=== PATIENT | male | born 1965 | race Caucasian/White ===

== ENCOUNTER 2017-07-02 19:12 | Inpatient (IN) | payer OTHER ==
[~2017-07-02] VITALS: Ht 175.2 cm; Wt 86.4 kg
[~2017-07-02 19:12] MED LIST: ASPIRIN CHEWABL81 M1 PO; CIPRO500 MG PO; D-1000 185 MG-11 TAB PO; TRAMADOL HCL50 MG PO; TRIMOX500 MG PO
[2017-07-02 19:19] VITALS: BP 149/87
[2017-07-02 19:43] LABS: BASO # 0.1 10*3/uL (0.0-0.1); BASO % 0.5 % (0.0-1.0); EOS # 0.8 10*3/uL (0.0-0.4); EOS % 6.3 % (1.0-4.0); HEMATOCRIT 46.1 % (42.0-52.0); HEMOGLOBIN 16.1 g/dl (14.0-18.0); LYMPH # 4.4 10*3/uL (1.3-4.4); LYMPH % 33.2 % (27.0-41.0); MEAN CELL VOLUME 95.6 fl (80.0-94.0); MEAN CORPUSCULAR HGB 33.4 pg (27.0-31.0); MEAN CORPUSCULAR HGB CONC 34.9 g/dl (33.0-37.0); MEAN PLATELET VOLUME 9.8 fl (9.6-12.3); MONO # 1.4 10*3/uL (0.1-1.0); MONO % 10.2 % (3.0-9.0); NEUT # 6.6 10*3/uL (2.3-7.9); NEUT % 49.3 % (47.0-73.0); PLATELET COUNT AUTOMATED 340 10*3/uL (130-400); RED BLOOD COUNT 4.82 10*6/uL (4.50-5.90); RED CELL DISTRI WIDTH 12.4 % (0-14.5); WHITE BLOOD COUNT 13.3 10*3/uL (4.8-10.8)
[2017-07-02 20:01] LABS: ALBUMIN 3.7 gm/dl (3.1-4.5); ALKALINE PHOSPHATASE 80 U/L (45-117); BUN 13 mg/dl (7-24); CHLORIDE 103 mmol/L (98-107); CREATININE 0.98 mg/dL (0.70-1.30); POTASSIUM 3.9 mmol/L (3.5-5.1); SGOT/AST 16 IU/L (3-35); SGPT/ALT 26 U/L (12-78); SODIUM 139 mmol/L (136-145); TOTAL PROTEIN 7.2 gm/dL (6.4-8.2)
[2017-07-02 20:04] LABS: ETHYL ALCOHOL < 3.0 mg/dl (<3); TROPONIN I < 0.015 ng/ml (<0.045)
[2017-07-02 20:14] VITALS: BP 132/89
[2017-07-02 20:58] VITALS: BP 131/87
[2017-07-02 21:20] VITALS: BP 109/90
[2017-07-02 21:41] VITALS: BP 109/90
[2017-07-02 22:00] VITALS: BP 109/90
[2017-07-03] VITALS (8 sets, daily range): BP systolic 102–148; BP diastolic 62–77
[2017-07-03 05:55] LABS: BASO # 0.1 10*3/uL (0.0-0.1); BASO % 0.5 % (0.0-1.0); EOS # 0.7 10*3/uL (0.0-0.4); EOS % 6.6 % (1.0-4.0); HEMATOCRIT 43.1 % (42.0-52.0); HEMOGLOBIN 14.9 g/dl (14.0-18.0); LYMPH # 4.1 10*3/uL (1.3-4.4); LYMPH % 37.5 % (27.0-41.0); MEAN CELL VOLUME 96.6 fl (80.0-94.0); MEAN CORPUSCULAR HGB 33.4 pg (27.0-31.0); MEAN CORPUSCULAR HGB CONC 34.6 g/dl (33.0-37.0); MEAN PLATELET VOLUME 10.2 fl (9.6-12.3); MONO % 8.9 % (3.0-9.0); NEUT # 5.1 10*3/uL (2.3-7.9); PLATELET COUNT AUTOMATED 320 10*3/uL (130-400); RED BLOOD COUNT 4.46 10*6/uL (4.50-5.90); RED CELL DISTRI WIDTH 12.5 % (0-14.5)
[2017-07-03 06:19] LABS: BUN 9 mg/dl (7-24); CHLORIDE 109 mmol/L (98-107); CHOLESTEROL 214 mg/dL (<200); CREATININE 0.66 mg/dL (0.70-1.30); HDL CHOLESTEROL 42 mg/dl (40-60); LDL CHOLESTEROL 123 mg/dL (9-159); POTASSIUM 3.8 mmol/L (3.5-5.1); SODIUM 142 mmol/L (136-145); TRIGLYCERIDES 244 mg/dl (<150); VLDL CHOLESTEROL 49 mg/dL (6-40)
[2017-07-03 06:31] LABS: ACT PARTIAL THROMBO TIME 33.1 SECONDS (20.8-31.5)
[2017-07-03 06:38] LABS: VITAMIN D, 25-HYDROXY 9.7 ng/mL (30-100)
[2017-07-04] VITALS: BP 120/70
[2017-07-04 08:00] VITALS: BP 130/86
[2017-07-04 12:00] VITALS: BP 118/82
[2017-07-04] MEDS ORDERED: CALCIUM CARBON200 MG PO (13:37)
[2017-07-04] MEDS ORDERED: SIMVASTATIN20 MG PO (13:37)
== END 2017-07-04 15:35 | disposition home or self-care (01) | DRG 309 ==
LOC: ED 19:12 → 4E 20:48 → EDHOLD 20:48 → 4E 20:57
PROVIDERS: Internal Medicine; Physician Assistant; ADMIT Internal Medicine
DX: I48.0 Paroxysmal atrial fibrillation (principal); R65.10 Systemic inflammatory response syndrome (SIRS) of non-infectious origin without acute organ dysfunction; E83.41 Hypermagnesemia; F10.288 Alcohol dependence with other alcohol-induced disorder; D72.829 Elevated white blood cell count, unspecified; Z71.6 Tobacco abuse counseling; F17.200 Nicotine dependence, unspecified, uncomplicated; Z82.49 Family history of ischemic heart disease and other diseases of the circulatory system; Z79.82 Long term (current) use of aspirin; E55.9 Vitamin D deficiency, unspecified; F10.20 Alcohol dependence, uncomplicated; E83.51 Hypocalcemia; E78.5 Hyperlipidemia, unspecified